=== PATIENT | male | born 2000 ===

== ENCOUNTER 2019-07-20 10:46 | Emergency (ER) | payer OTHER ==
[~2019-07-20] VITALS: Ht 160 cm; Wt 47.6 kg
[2019-07-20] MEDS ORDERED: ZITHROMAX500 MG PO (13:59)
[2019-07-20] MEDS ORDERED: INTESTINEX680 M1 PO (13:59)
== END 2019-07-20 14:16 | disposition home or self-care (01) ==
LOC: ER 10:46
DX: R10.84 Generalized abdominal pain (principal); B96.0 Mycoplasma pneumoniae [M. pneumoniae] as the cause of diseases classified elsewhere

== ENCOUNTER 2020-11-16 22:47 | Emergency (ER) | payer OTHER ==
[~2020-11-16] VITALS: Ht 160 cm; Wt 41.7 kg
[~2020-11-16 22:47] MED LIST: INTESTINEX680 M1 PO; ZITHROMAX500 MG PO
[2020-11-16] MEDS ORDERED: PROTONIX40 M1 (23:17)
[2020-11-17] MEDS ORDERED: METOCLOPRAMIDE H5 M1 PO (03:48)
[2020-11-17] MEDS ORDERED: PEPCID40 MG PO (03:48)
== END 2020-11-17 03:53 | disposition home or self-care (01) ==
LOC: ER 22:47
DX: K29.00 Acute gastritis without bleeding (principal); R11.2 Nausea with vomiting, unspecified; Z11.52 Encounter for screening for COVID-19